=== PATIENT | female | born 1995 | race Native Hawaiian/Other Pacific Islander ===

== ENCOUNTER 2019-07-25 11:27 | Emergency (ER) | payer OTHER ==
[~2019-07-25] VITALS: Ht 162.6 cm; Wt 74.8 kg
[2019-07-25 11:53] LABS: PLATELET COUNT 348 K/uL (152-353)
[2019-07-25 12:08] LABS: POTASSIUM 3.8 mmol/L (3.6-5.2)
[2019-07-25 14:50] VITALS: BP 135/72; TEMP 98.2
== END 2019-07-25 15:00 | disposition home or self-care (01) ==
LOC: ED 11:27
PROVIDERS: Hospitalist
DX: N20.0 Calculus of kidney (principal); R31.9 Hematuria, unspecified
CPT/HCPCS: 36415; 80053; 81000; 81025; 82150; 83690; 85027; 96360; 96375; 99284; J1885; J2270; J2405

== ENCOUNTER 2023-07-04 21:19 | Emergency (ER) | payer OTHER ==
[~2023-07-04] VITALS: Ht 162.6 cm; Wt 102.5 kg
[2023-07-04 22:40] LABS: POTASSIUM 3.8 mmol/L (3.6-5.2)
[2023-07-04 22:45] LABS: PLATELET COUNT 313 K/uL (152-353)
[2023-07-04 23:30] VITALS: BP 152/86
== END 2023-07-04 23:30 | disposition home or self-care (01) ==
LOC: ED 21:19
PROVIDERS: Family Medicine
DX: N23 Unspecified renal colic (principal); R10.9 Unspecified abdominal pain
CPT/HCPCS: 36415; 80053; 81000; 81025; 85027; 96372; 99283; J1885